=== PATIENT | female | born 1980 | race Caucasian/White ===

== ENCOUNTER 2018-03-27 12:13 | Emergency (ER) | payer MEDICAID ==
[~2018-03-27] VITALS: Ht 167.6 cm; Wt 75.7 kg
[2018-03-27] MEDS ORDERED: SODIUM CHLORIDE 0.9% 1,000 ML IV ONE (13:29)
[2018-03-27] MEDS ORDERED: ACETAMINOPHEN 325MG TABLET PO PRN (13:30)
[2018-03-27 15:04] LABS: CHLORIDE 106 mEq/L (98-107)
[2018-03-27 15:09] LABS: CLARITY URINE CLEAR (CLEAR); COLOR URINE YELLOW (YELLOW); KETONES URINE NEGATIVE (NEGATIVE); LEUKOCYTE ESTERASE URINE NEGATIVE (NEGATIVE); NITRITE URINE NEGATIVE (NEGATIVE); OCCULT BLOOD URINE 3+ (NEGATIVE); PH URINE 5.5 (4.5-8.0); PROTEIN URINE NEGATIVE (NEGATIVE); SPECIFIC GRAVITY URINE 1.018 (1.005-1.030); UROBILINOGEN URINE 0.2 E.U./dL (0.2-1.0)
[2018-03-27 15:13] LABS: BASOPHILS % 0.2 % (0.0-2.0); EOSINOPHILS % 0.2 % (0.0-5.0); HEMATOCRIT. 39.6 % (36.0-48.0); HEMOGLOBIN. 13.4 g/dL (12.0-16.0); MEAN CORPUSCULAR HEMOGLOBIN 30.5 pg (28.0-32.0); MEAN CORPUSCULAR VOLUME 90.3 fL (81.0-99.0); MEAN PLATELET VOLUME 8.9 fl (7.4-10.4); MONOCYTES % 4.5 % (2.0-8.0); NEUTROPHILS % 86.1 % (40.0-76.0); PLATELET 194 x1000/uL (130-400); RED BLOOD CELL COUNT 4.38 mill/uL (4.2-5.4); RED CELL DISTRIBUTION WIDTH 12.9 % (11.6-14.6)
[2018-03-27 15:28] LABS: B-HCG QUANTITATIVE 2090 mIU/mL (<3)
[2018-03-27 16:45] VITALS: BP 128/96
[2018-03-27] MEDS ORDERED: MISOPROSTOL 100MCG TABLET PO SCH ×2 (18:20)
== END 2018-03-27 16:56 | disposition home or self-care (01) ==
LOC: ER 13:03
DX: O03.9 Complete or unspecified spontaneous abortion without complication (principal); Z3A.08 8 weeks gestation of pregnancy; Z98.890 Other specified postprocedural states
CPT/HCPCS: 36415; 76830; 76856; 80053; 81003; 81025; 84702; 85025; 86850; 86900; 86901; 99285; J7030

== ENCOUNTER 2018-10-26 14:28 | Emergency (ER) | payer MEDICAID ==
[~2018-10-26] VITALS: Ht 170.2 cm; Wt 73.0 kg
[2018-10-26 15:35] LABS: CLARITY URINE CLEAR (CLEAR); COLOR URINE YELLOW (YELLOW); KETONES URINE NEGATIVE (NEGATIVE); LEUKOCYTE ESTERASE URINE NEGATIVE (NEGATIVE); NITRITE URINE NEGATIVE (NEGATIVE); OCCULT BLOOD URINE NEGATIVE (NEGATIVE); PH URINE 6.5 (4.5-8.0); PROTEIN URINE NEGATIVE (NEGATIVE); SPECIFIC GRAVITY URINE 1.001 (1.005-1.030); UROBILINOGEN URINE 0.2 E.U./dL (0.2-1.0)
[2018-10-26 20:21] LABS: BASOPHILS % 0.3 % (0.0-2.0); EOSINOPHILS % 0.6 % (0.0-5.0); HEMATOCRIT. 36.6 % (36.0-48.0); HEMOGLOBIN. 12.7 g/dL (12.0-16.0); LYMPHOCYTES % 24.2 % (20.0-50.0); MEAN CORPUSCULAR HEMOGLOBIN 31.9 pg (28.0-32.0); MEAN CORPUSCULAR VOLUME 91.7 fL (81.0-99.0); MONOCYTES % 8.3 % (2.0-8.0); NEUTROPHILS % 66.6 % (40.0-76.0); PLATELET 178 x1000/uL (130-400); RED CELL DISTRIBUTION WIDTH 13.9 % (11.6-14.6)
[2018-10-26 20:22] LABS: CHLORIDE 107 mEq/L (98-107)
[2018-10-26 20:46] LABS: B-HCG QUANTITATIVE 36241 mIU/mL (<3)
[2018-10-26 22:19] VITALS: BP 115/87
== END 2018-10-26 22:20 | disposition home or self-care (01) ==
LOC: ER 14:28
DX: O26.891 Other specified pregnancy related conditions, first trimester (principal); Z3A.13 13 weeks gestation of pregnancy; R10.31 Right lower quadrant pain; R30.0 Dysuria; Z98.890 Other specified postprocedural states
CPT/HCPCS: 36415; 76801; 81025; 84702; 86850; 86900; 99284

== ENCOUNTER 2019-02-07 10:19 | Observation (INO) | payer MEDICAID ==
[2019-02-07] MEDS ORDERED: PREN-176 MT (10:53)
[2019-02-07 11:57] LABS: CLARITY URINE CLEAR (CLEAR); COLOR URINE YELLOW (YELLOW); KETONES URINE NEGATIVE (NEGATIVE); LEUKOCYTE ESTERASE URINE NEGATIVE (NEGATIVE); NITRITE URINE NEGATIVE (NEGATIVE); OCCULT BLOOD URINE NEGATIVE (NEGATIVE); PH URINE 7.5 (4.5-8.0); PROTEIN URINE NEGATIVE (NEGATIVE); SPECIFIC GRAVITY URINE 1.005 (1.005-1.030); UROBILINOGEN URINE 0.2 E.U./dL (0.2-1.0)
[2019-02-07 13:08] LABS: BASOPHILS % 0.2 % (0.0-2.0); EOSINOPHILS % 0.5 % (0.0-5.0); HEMOGLOBIN. 12.6 g/dL (12.0-16.0); LYMPHOCYTES % 16.3 % (20.0-50.0); MEAN CORPUSCULAR HEMOGLOBIN 31.7 pg (28.0-32.0); MEAN CORPUSCULAR VOLUME 92.8 fL (81.0-99.0); MEAN PLATELET VOLUME 9.7 fl (7.4-10.4); MONOCYTES % 6.6 % (2.0-8.0); NEUTROPHILS % 76.4 % (40.0-76.0); PLATELET 208 x1000/uL (130-400); RED BLOOD CELL COUNT 3.99 mill/uL (4.2-5.4); RED CELL DISTRIBUTION WIDTH 12.9 % (11.6-14.6)
== END 2019-02-07 13:30 | disposition home or self-care (01) ==
LOC: 8 EST LDRP 10:19
PROVIDERS: ADMIT Obstetrics & Gynecology; ATTEND Obstetrics & Gynecology
DX: O26.892 Other specified pregnancy related conditions, second trimester (principal); R10.9 Unspecified abdominal pain; Z3A.27 27 weeks gestation of pregnancy
CPT/HCPCS: 36415; 76856; 76857; 81003; 85025; 99281; G0378

== ENCOUNTER 2019-04-24 06:14 | Inpatient (IN) | payer MEDICAID ==
[~2019-04-24] VITALS: Ht 170.2 cm; Wt 93.4 kg
[~2019-04-24 06:14] MED LIST: PREN-176 MT
[2019-04-24] MEDS ORDERED: DEXT 5%/LR + PITOCIN 20UNITS/L 1,000 ML IV SCH ×2 (06:38→11:05)
[2019-04-24] MEDS ORDERED: MISOPROSTOL 100MCG TABLET VG SCH (06:45)
[2019-04-24] MEDS ORDERED: CARBOPROST TROMETHAMINE 250 MCG/ML AMPUL IM PRN (06:45)
[2019-04-24] MEDS ORDERED: NALOXONE HCL 0.4 MG/ML 1ML VIAL IM PRN (06:45)
[2019-04-24] MEDS ORDERED: METHYLERGONOVINE MALEATE 0.2 MG/ML IM PRN (06:45)
[2019-04-24] MEDS ORDERED: CITRIC ACID/SODIUM CITRATE SOLN 30ML UDC PO NR (06:45)
[2019-04-24] MEDS ORDERED: BUTORPHANOL TARTRATE 2 MG/ML VIAL IV PRN ×2 (06:45→12:45)
[2019-04-24 07:48] LABS: CLARITY URINE HAZY (CLEAR); COLOR URINE YELLOW (YELLOW); KETONES URINE NEGATIVE (NEGATIVE); LEUKOCYTE ESTERASE URINE NEGATIVE (NEGATIVE); NITRITE URINE NEGATIVE (NEGATIVE); OCCULT BLOOD URINE NEGATIVE (NEGATIVE); PROTEIN URINE NEGATIVE (NEGATIVE); SPECIFIC GRAVITY URINE 1.018 (1.005-1.030); UROBILINOGEN URINE 0.2 E.U./dL (0.2-1.0)
[2019-04-24 07:52] LABS: BASOPHILS % 0.3 % (0.0-2.0); EOSINOPHILS % 0.3 % (0.0-5.0); HEMATOCRIT. 37.4 % (36.0-48.0); HEMOGLOBIN. 12.7 g/dL (12.0-16.0); LYMPHOCYTES % 15.1 % (20.0-50.0); MEAN CORPUSCULAR HEMOGLOBIN 30.9 pg (28.0-32.0); MEAN CORPUSCULAR VOLUME 90.5 fL (81.0-99.0); MEAN PLATELET VOLUME 10.5 fl (7.4-10.4); MONOCYTES % 6.9 % (2.0-8.0); NEUTROPHILS % 77.4 % (40.0-76.0); PLATELET 178 x1000/uL (130-400); RED BLOOD CELL COUNT 4.13 mill/uL (4.2-5.4); RED CELL DISTRIBUTION WIDTH 13.9 % (11.6-14.6)
[2019-04-24 08:01] LABS: INR 0.9; PARTIAL THROMBOPLASTIN TIME 26.4 sec (23.4-31.0); PROTHROMBIN TIME 9.3 sec (9.6-11.0)
[2019-04-24] MEDS ORDERED: MORPHINE SULFATE/PF 1MG/ML 10ML AMP ONE (08:45)
[2019-04-24] MEDS ORDERED: FENTANYL CITRATE/PF 50MCG/ML 2ML VIAL ONE (08:45)
[2019-04-24] MEDS ORDERED: OXYTOCIN 10 UNITS/ML 1ML ONE ×2 (08:46→10:33)
[2019-04-24] MEDS ORDERED: EPHEDRINE SULFATE 50MG/ML VIAL ONE (08:46)
[2019-04-24] MEDS ORDERED: ONDANSETRON HCL 4MG/2ML INJ ONE (08:46)
[2019-04-24] MEDS ORDERED: PHENYLEPHRINE HCL 10 MG/ML 1ML (IV VIAL) IV ONE (08:46)
[2019-04-24] MEDS ORDERED: GLYCOPYRROLATE 0.2 MG/ML 2ML VIAL ONE (08:46)
[2019-04-24] MEDS ORDERED: CEFAZOLIN SODIUM 1000MG/VIAL ONE (08:46)
[2019-04-24] MEDS: LACTATED RINGERS 1,000 ML IV SCH ×2 (09:45→09:49)
[2019-04-24] MEDS ORDERED: MIDAZOLAM HCL 2 MG/2 ML VIAL ONE (10:22)
[2019-04-24] MEDS ORDERED: BISACODYL 10MG SUPP PR PRN (11:15)
[2019-04-24] MEDS ORDERED: RHO(D) IMMUNE GLOBULIN 300 MCG/SYR IM PRN (11:15)
[2019-04-24] MEDS ORDERED: IBUPROFEN 400MG TABLET PO PRN (11:15)
[2019-04-24 12:42] LABS: HEPATITIS B SURFACE ANTIGEN NEGATIVE
[2019-04-24] MEDS ORDERED: DIPHENHYDRAMINE 50MG/ML VIAL IV PRN (12:45)
[2019-04-24] MEDS ORDERED: BUTORPHANOL TARTRATE 2 MG/ML VIAL IM PRN (12:45)
[2019-04-24 15:39] VITALS: BP 104/56
[2019-04-24 15:58] LABS: *BARBITURATES SCREEN URINE NEGATIVE (NEGATIVE); *BENZODIAZEPINES SCREEN URINE NEGATIVE (NEGATIVE)
[2019-04-24 15:59] LABS: METHADONE URINE SCREEN NEGATIVE (NEGATIVE)
[2019-04-24 16:08] LABS: *COCAINE SCREEN URINE NEGATIVE (NEGATIVE)
[2019-04-24 16:09] LABS: OPIATES URINE SCREEN NEGATIVE (NEGATIVE)
[2019-04-24 16:11] LABS: PHENCYCLIDINE URINE SCREEN NEGATIVE (NEGATIVE)
[2019-04-24 16:19] LABS: *AMPHETAMINES SCREEN URINE NEGATIVE (NEGATIVE)
[2019-04-24 16:20] LABS: CANNABINOID URINE SCREEN NEGATIVE (NEGATIVE)
[2019-04-24 16:30] VITALS: BP 115/60
[2019-04-24 20:20] VITALS: BP 105/61
[2019-04-24] MEDS: HYDROMORPHONE HCL/PF 2MG/ML CPJ IM PRN (20:37)
[2019-04-25 00:23] VITALS: BP 101/61
[2019-04-25 04:59] VITALS: BP 110/69
[2019-04-25] MEDS: HYDROMORPHONE HCL/PF 2MG/ML CPJ IM PRN ×2 (05:14→19:58)
[2019-04-25 06:54] LABS: BASOPHILS % 0.3 % (0.0-2.0); EOSINOPHILS % 0.2 % (0.0-5.0); HEMATOCRIT. 32.2 % (36.0-48.0); HEMOGLOBIN. 11.1 g/dL (12.0-16.0); LYMPHOCYTES % 8.5 % (20.0-50.0); MEAN CORPUSCULAR HEMOGLOBIN 31.1 pg (28.0-32.0); MEAN PLATELET VOLUME 9.4 fl (7.4-10.4); PLATELET 143 x1000/uL (130-400); RED BLOOD CELL COUNT 3.58 mill/uL (4.2-5.4); RED CELL DISTRIBUTION WIDTH 13.7 % (11.6-14.6)
[2019-04-25] MEDS: IBUPROFEN 800MG TABLET PO PRN ×2 (09:16→17:48)
[2019-04-25 12:12] VITALS: BP 101/55
[2019-04-25] MEDS ORDERED: BISACODYL 10MG SUPP PR PRN (12:15)
[2019-04-25] MEDS: SIMETHICONE 80MG TABLET CHEW PO PRN ×2 (12:20→17:48)
[2019-04-25 15:55] VITALS: BP 95/64
[2019-04-25 19:30] VITALS: BP 115/71
[2019-04-26 04:00] VITALS: BP 114/70
[2019-04-26 08:20] VITALS: BP 120/75
[2019-04-26] MEDS: IBUPROFEN 800MG TABLET PO PRN (09:06)
[2019-04-26 16:00] VITALS: BP 120/68
[2019-04-26] MEDS: SIMETHICONE 80MG TABLET CHEW PO PRN (17:37)
[2019-04-26 19:30] VITALS: BP 109/72
[2019-04-27] MEDS: IBUPROFEN 800MG TABLET PO PRN ×2 (03:31→08:21)
[2019-04-27 04:00] VITALS: BP 113/65
[2019-04-27] MEDS ORDERED: TETANUS, DIPHTHERIA, PERTUSSIS VAC/PF 0.5ML (>7YR OLD) IM ONE (06:00)
[2019-04-27 07:30] VITALS: BP 115/77
[2019-04-27] MEDS: SIMETHICONE 80MG TABLET CHEW PO PRN (08:21)
== END 2019-04-27 14:00 | disposition home or self-care (01) | DRG 540 ==
LOC: 8 EST LDRP 06:14 → OBSVTOIN 06:14 → 8EST NSY 15:25 → 8EST 04-25 11:58
PROVIDERS: ADMIT Obstetrics & Gynecology; ATTEND Obstetrics & Gynecology
PROC: 10D00Z1 Extraction of Products of Conception, Low, Open Approach (ICD-10-PCS; principal; 2019-04-24)
DX: O34.211 Maternal care for low transverse scar from previous cesarean delivery (principal); O77.0 Labor and delivery complicated by meconium in amniotic fluid; Z3A.39 39 weeks gestation of pregnancy; Z37.0 Single live birth; Z83.3 Family history of diabetes mellitus
CPT/HCPCS: 36415; 80305; 81003; 86592; 86703; 86762; 86850; 86900; 86920; 87340; 88307; 90715; J0690; J1170; J1200; J2250; J2274; J2370; J2405; J2590; J3010; J3490